=== PATIENT | female | born 1960 | race Caucasian/White ===

== ENCOUNTER 2018-05-08 13:34 | Inpatient (IN) | payer SELFPAY ==
[~2018-05-08] VITALS: Ht 165.1 cm; Wt 94.6 kg
[2018-05-08] MEDS ORDERED: SODIUM CHLORIDE 0.9% 1,000 ML IV ONE (13:55)
[2018-05-08] MEDS ORDERED: INSULIN REGULAR (HUMULIN R) 300UNITS/3ML IV ONE (14:00)
[2018-05-08 14:13] LABS: EOSINOPHILS % 5.7 % (0.0-5.0); HEMATOCRIT. 36.2 % (36.0-48.0); HEMOGLOBIN. 12.3 g/dL (12.0-16.0); LYMPHOCYTES % 22.3 % (20.0-50.0); MEAN CORPUSCULAR HEMOGLOBIN 29.1 pg (28.0-32.0); MEAN CORPUSCULAR VOLUME 85.9 fL (81.0-99.0); MEAN PLATELET VOLUME 8.7 fl (7.4-10.4); MONOCYTES % 9.8 % (2.0-8.0); NEUTROPHILS % 60.2 % (40.0-76.0); PLATELET 352 x1000/uL (130-400); RED BLOOD CELL COUNT 4.22 mill/uL (4.2-5.4); RED CELL DISTRIBUTION WIDTH 13.1 % (11.6-14.6)
[2018-05-08 14:22] LABS: INR 0.9; PARTIAL THROMBOPLASTIN TIME 26.2 sec (23.4-31.0)
[2018-05-08 14:26] LABS: CHLORIDE 95 mEq/L (98-107); PROTHROMBIN TIME < 9.0 sec (9.1-11.1)
[2018-05-08 14:30] LABS: ETHANOL BLOOD < 10 mg/dL
[2018-05-08 14:32] LABS: BETA HYDROXYBUTYRATE 0.2 mMol/L (0.0-0.3)
[2018-05-08 14:33] LABS: LDL CHOLESTEROL 295 mg/dL (5-100)
[2018-05-08 14:34] LABS: CREATINE KINASE 342 IU/L (26-192)
[2018-05-08] MEDS ORDERED: ASPIRIN 325MG EC TABLET PO ONE (15:00)
[2018-05-08] MEDS ORDERED: FUROSEMIDE 20MG/2ML VIAL IVP ONE (15:15)
[2018-05-08] MEDS ORDERED: DOCUSATE SODIUM 100MG CAPSULE PO PRN (16:15)
[2018-05-08] MEDS ORDERED: ACETAMINOPHEN 650MG/20.3ML UDC GT PRN (16:15)
[2018-05-08] MEDS ORDERED: IPRATROPIUM/ALBUTEROL 0.5-3(2.5)MG/3ML NEB INH PRN (16:15)
[2018-05-08] MEDS ORDERED: DIPHENHYDRAMINE 50MG/ML VIAL IV PRN (16:15)
[2018-05-08] MEDS ORDERED: GUAIFENESIN 200MG/10ML SUGAR FREE UDC PO PRN (16:15)
[2018-05-08] MEDS ORDERED: NA PHOS,M-B/NA PHOS,DI-BA ENEMA 118ML PR PRN (16:15)
[2018-05-08] MEDS ORDERED: ACETAMINOPHEN 325MG TABLET PO PRN (16:15)
[2018-05-08] MEDS ORDERED: ACETAMINOPHEN 650MG SUPP PR PRN (16:15)
[2018-05-08] MEDS ORDERED: MAGNESIUM/ALUMINUM HYDROXIDE/SIMETHICONE 30ML UDC PO PRN (16:15)
[2018-05-08] MEDS ORDERED: HYDROCODONE/ACETAMINOPHEN 5/325MG TABLET PO PRN (16:15)
[2018-05-08] MEDS ORDERED: ENOXAPARIN 40MG/0.4ML SYR SUBCUT SCH (16:15)
[2018-05-08 18:39] VITALS: BP 124/62
[2018-05-08 20:00] VITALS: BP 164/82
[2018-05-08] MEDS ORDERED: INSULIN GLARGINE UD 100 UNITS/ML SYR SUBCUT NR (21:00)
[2018-05-08] MEDS: ASPIRIN 81MG TABLET PO SCH (21:08)
[2018-05-08] MEDS: ENOXAPARIN 30MG/0.3ML SYR SUBCUT SCH (21:09)
[2018-05-08] MEDS: SODIUM CHLORIDE 0.9% 1,000 ML IV SCH (21:48)
[2018-05-08] MEDS: ATORVASTATIN CALCIUM 10MG TABLET PO SCH (21:48)
[2018-05-08 22:00] VITALS: BP 154/67
[2018-05-08] MEDS: SODIUM CHLORIDE 0.9% INJ 3ML FLUSH IVF SCH (22:40)
[2018-05-09] VITALS (13 sets, daily range): BP systolic 117–178; BP diastolic 54–90
[2018-05-09] MEDS ORDERED: DEXTROSE 50% WATER 50ML SYRINGE IV PRN (05:00)
[2018-05-09] MEDS: CLONIDINE 0.1MG TABLET PO PRN (05:01)
[2018-05-09] MEDS ORDERED: INSULIN LISPRO 100 UNITS/ML SUBCUT SCH (06:00)
[2018-05-09] MEDS: BLOOD SUGAR DIAGNOSTIC STRIP TEST SCH ×3 (06:08→17:52)
[2018-05-09] MEDS: INSULIN LISPRO 100 UNITS/ML SUBCUT SCH ×3 (06:09→17:52)
[2018-05-09] MEDS: SODIUM CHLORIDE 0.9% INJ 3ML FLUSH IVF SCH ×3 (06:10→21:16)
[2018-05-09 06:20] LABS: BASOPHILS % 1.3 % (0.0-2.0); EOSINOPHILS % 8.7 % (0.0-5.0); HEMATOCRIT. 32.3 % (36.0-48.0); HEMOGLOBIN. 11.1 g/dL (12.0-16.0); LYMPHOCYTES % 38.5 % (20.0-50.0); MEAN CORPUSCULAR HEMOGLOBIN 28.9 pg (28.0-32.0); MEAN PLATELET VOLUME 8.9 fl (7.4-10.4); MONOCYTES % 9.3 % (2.0-8.0); NEUTROPHILS % 42.2 % (40.0-76.0); PLATELET 314 x1000/uL (130-400); RED BLOOD CELL COUNT 3.85 mill/uL (4.2-5.4); RED CELL DISTRIBUTION WIDTH 13.3 % (11.6-14.6)
[2018-05-09 07:21] LABS: CHLORIDE 99 mEq/L (98-107)
[2018-05-09 07:57] LABS: LDL CHOLESTEROL 255 mg/dL (5-100)
[2018-05-09 07:59] LABS: HDL CHOLESTEROL 50 mg/dL (40-59)
[2018-05-09] MEDS: ASPIRIN 81MG TABLET PO SCH (09:45)
[2018-05-09] MEDS: ENOXAPARIN 30MG/0.3ML SYR SUBCUT SCH (09:45)
[2018-05-09] MEDS ORDERED: LISI-186 MT (10:04)
[2018-05-09] MEDS ORDERED: GABA-529 MT (10:04)
[2018-05-09] MEDS ORDERED: HYDR12.518 MT (10:04)
[2018-05-09] MEDS ORDERED: APIX2.5T MT (10:04)
[2018-05-09] MEDS ORDERED: INSULIN GLARGINE UD 100 UNITS/ML SYR SUBCUT NR ×2 (12:15→22:00)
[2018-05-09] MEDS ORDERED: APIXABAN 2.5 MG TABLET PO SCH (17:00)
[2018-05-09] MEDS: SODIUM CHLORIDE 0.9% 1,000 ML IV SCH (17:51)
[2018-05-09] MEDS: APIXABAN 5 MG TABLET PO SCH (17:51)
[2018-05-09] MEDS: ATORVASTATIN CALCIUM 10MG TABLET PO SCH (21:16)
[2018-05-09] MEDS ORDERED: INSULIN GLARGINE UD 100 UNITS/ML SYR SUBCUT SCH ×3 (22:00)
[2018-05-10] VITALS (19 sets, daily range): BP systolic 144–198; BP diastolic 62–100
[2018-05-10] MEDS: BLOOD SUGAR DIAGNOSTIC STRIP TEST SCH ×4 (00:15→17:30)
[2018-05-10] MEDS: INSULIN LISPRO 100 UNITS/ML SUBCUT SCH ×4 (00:22→17:30)
[2018-05-10] MEDS: SODIUM CHLORIDE 0.9% INJ 3ML FLUSH IVF SCH ×3 (06:00→21:45)
[2018-05-10] MEDS: APIXABAN 5 MG TABLET PO SCH ×2 (09:09→17:30)
[2018-05-10] MEDS: INSULIN GLARGINE UD 100 UNITS/ML SYR SUBCUT SCH ×2 (09:09→21:44)
[2018-05-10] MEDS: ASPIRIN 81MG TABLET PO SCH (09:10)
[2018-05-10] MEDS ORDERED: LANTUSUD SUBCUT (11:28)
[2018-05-10] MEDS ORDERED: ASPI-1160 PO (11:28)
[2018-05-10] MEDS ORDERED: ATOR10TA PO (11:28)
[2018-05-10] MEDS ORDERED: APIX5TAB PO (11:28)
[2018-05-10 11:46] LABS: CHLORIDE 102 mEq/L (98-107)
[2018-05-10 12:05] LABS: BASOPHILS % 1.5 % (0.0-2.0); EOSINOPHILS % 7.2 % (0.0-5.0); HEMATOCRIT. 33.2 % (36.0-48.0); HEMOGLOBIN. 11.3 g/dL (12.0-16.0); LYMPHOCYTES % 29.6 % (20.0-50.0); MEAN CORPUSCULAR HEMOGLOBIN 28.7 pg (28.0-32.0); MEAN CORPUSCULAR VOLUME 84.1 fL (81.0-99.0); MEAN PLATELET VOLUME 8.7 fl (7.4-10.4); MONOCYTES % 8.4 % (2.0-8.0); NEUTROPHILS % 53.3 % (40.0-76.0); PLATELET 371 x1000/uL (130-400); RED BLOOD CELL COUNT 3.95 mill/uL (4.2-5.4)
[2018-05-10] MEDS: CLONIDINE 0.1MG TABLET PO PRN (20:26)
[2018-05-10] MEDS ORDERED: ATORVASTATIN CALCIUM 10MG TABLET PO SCH (21:00)
[2018-05-10] MEDS ORDERED: HYDRALAZINE 20MG/ML VIAL IV NR (22:13)
[2018-05-10] MEDS ORDERED: LOSARTAN POTASSIUM 50 MG TABLET PO NR (22:14)
== END 2018-05-10 23:53 | disposition home or self-care (01) | DRG 45 ==
LOC: ER 14:11 → EDBEDREQ 14:59 → EDBEDREQTM 15:34 → ENRESERV 16:40 → 3WST 20:36
PROVIDERS: ADMIT Family Medicine; ATTEND Family Medicine
PROC: 4A00X4Z Measurement of Central Nervous Electrical Activity, External Approach (ICD-10-PCS; principal; 2018-05-10)
DX: I63.9 Cerebral infarction, unspecified (principal); E11.319 Type 2 diabetes mellitus with unspecified diabetic retinopathy without macular edema; E11.42 Type 2 diabetes mellitus with diabetic polyneuropathy; E11.65 Type 2 diabetes mellitus with hyperglycemia; I10 Essential (primary) hypertension; E78.5 Hyperlipidemia, unspecified; R53.1 Weakness; R47.81 Slurred speech; Z68.34 Body mass index [BMI] 34.0-34.9, adult; Z86.711 Personal history of pulmonary embolism; Z79.899 Other long term (current) drug therapy; Z79.4 Long term (current) use of insulin; Z79.01 Long term (current) use of anticoagulants; Z79.82 Long term (current) use of aspirin; Z91.14 Patient's other noncompliance with medication regimen
CPT/HCPCS: 36415; 70450; 70551; 71045; 80053; 80061; 82010; 82550; 82962; 83036; 83690; 83721; 83735; 83880; 83930; 84484; 85025; 85610; 85730; 92610; 93005; 93306; 93880; 96361; 96374; 96375; 97162; 99291; G0482; J0360; J1650; J1815; J1940; J7030